=== PATIENT | male | born 1985 | race Caucasian/White ===

== ENCOUNTER 2017-12-13 10:16 | Emergency (ER) | payer MEDICAID ==
[~2017-12-13] VITALS: Ht 165.1 cm; Wt 208.7 kg
[2017-12-13 10:22] VITALS: Ht 165.1 cm; Wt 208.7 kg
[2017-12-13 11:35] VITALS: BP 129/84
== END 2017-12-13 11:29 | disposition home or self-care (01) ==
LOC: ED 10:16
DX: T15.01XA Foreign body in cornea, right eye, initial encounter (principal); I10 Essential (primary) hypertension; W22.8XXA Striking against or struck by other objects, initial encounter; Y93.H2 Activity, gardening and landscaping; Y92.89 Other specified places as the place of occurrence of the external cause; Y99.8 Other external cause status